=== PATIENT | male | born 1975 | race Caucasian/White ===

== ENCOUNTER 2018-03-30 09:58 | Day surgery (SDC) | payer OTHER ==
[2018-03-28 08:29] VITALS: BP 123/76
[~2018-03-30] VITALS: Ht 172.7 cm; Wt 81.9 kg
[~2018-03-30 09:58] MED LIST: BUDE0.5A INH; OMEP-110 PO
[2018-03-30] MEDS ORDERED: BUPIVACAINE/PF-EPI 0.5% 1:200K ONE (10:00)
[2018-03-30] MEDS ORDERED: LACTATED RINGERS 1,000 ML IV SCH ×2 (10:25→12:57)
[2018-03-30] MEDS ORDERED: ACETAMINOPHEN 500 MG TABLET PO ONE (10:30)
[2018-03-30] MEDS ORDERED: LIDOCAINE-MPF 1%, 2ML INFIL ONE (10:30)
[2018-03-30] MEDS ORDERED: GABAPENTIN 300 MG CAPSULE PO ONE (10:30)
[2018-03-30] MEDS ORDERED: FENTANYL PF 250 MCG/5ML ONE (12:00)
[2018-03-30] MEDS ORDERED: MIDAZOLAM 1 MG/ML, 2ML ONE (12:00)
[2018-03-30] MEDS ORDERED: ROCURONIUM 10MG/ML,5ML ONE (12:28)
[2018-03-30] MEDS ORDERED: PROPOFOL 10 MG/ML, 20ML ONE (12:28)
[2018-03-30] MEDS ORDERED: GLYCOPYRROLATE 0.2MG/1ML, 5ML ONE (12:28)
[2018-03-30] MEDS ORDERED: NEOSTIGMINE 1 MG/ML, 10ML ONE (12:28)
[2018-03-30] MEDS ORDERED: CEFAZOLIN 1,000 MG ONE (12:28)
[2018-03-30] MEDS ORDERED: ONDANSETRON 2MG/ML, 2ML IV PRN (12:30)
[2018-03-30] MEDS ORDERED: hydrALAzine 20 MG/ML, 1ML IV PRN (12:30)
[2018-03-30] MEDS ORDERED: PROMETHAZINE 25 MG SUPP PR PRN (12:30)
[2018-03-30] MEDS ORDERED: MORPHINE SULFATE 4 MG/ML, 1ML IVPush PRN (12:30)
[2018-03-30] MEDS ORDERED: PROMETHAZINE 25 MG/ML, 1ML IM PRN ×2 (12:30)
[2018-03-30] MEDS ORDERED: PROMETHAZINE 25 MG/ML, 1ML IV PRN (12:30)
[2018-03-30] MEDS ORDERED: LABETALOL 5MG/ML, 20ML IV PRN (12:30)
[2018-03-30] MEDS ORDERED: ONDANSETRON ODT 8 MG PO PRN (12:30)
[2018-03-30] MEDS ORDERED: OXYcodone 5 MG/5 ML ORAL.SOL UDC PO PRN (12:30)
[2018-03-30] MEDS ORDERED: PROMETHAZINE 12.5 MG SUPP PR PRN (12:30)
[2018-03-30] MEDS ORDERED: FENTANYL PF 100 MCG/2ML IV PRN (12:30)
[2018-03-30] MEDS ORDERED: HYDROmorphone 2 MG/ML, 1ML IVPush PRN (12:30)
[2018-03-30] MEDS ORDERED: MEPERIDINE/PF 25MG/0.5ML IVPush PRN (12:30)
[2018-03-30] MEDS ORDERED: ONDANSETRON 2MG/ML, 2ML IVPush PRN (13:00)
[2018-03-30] MEDS ORDERED: morphine SULFATE 10 MG/ML, 1ML IVPush PRN (13:00)
[2018-03-30] MEDS ORDERED: OXYcodone 5 MG/5 ML ORAL.SOL UDC ONE (13:12)
[2018-03-30] MEDS ORDERED: FENTANYL PF 100 MCG/2ML ONE (13:12)
== END 2018-03-30 14:35 | disposition home or self-care (01) ==
LOC: OUT 09:58
PROVIDERS: ATTEND Surgery
DX: K43.9 Ventral hernia without obstruction or gangrene (principal); K21.9 Gastro-esophageal reflux disease without esophagitis
CPT/HCPCS: 49560; 49568; C1781; J0690; J2250; J2704; J2710; J3010; J3490; J7120